=== PATIENT | female | born 1960 | race Caucasian/White ===

== ENCOUNTER → 2016-07-16 | Outpatient (CLI) | payer BC | LOC: BMCIMAGING 09:26 | PROVIDERS: ATTEND Internal Medicine | DX: Z13.820 Encounter for screening for osteoporosis (principal); M85.89 Other specified disorders of bone density and structure, multiple sites; R22.1 Localized swelling, mass and lump, neck | CPT/HCPCS: 76536-PO ==

== ENCOUNTER → 2017-09-22 | Outpatient (CLI) | payer BC | LOC: BMCIMAGING 13:59 | PROVIDERS: ATTEND Physician Assistant | DX: M23.92 Unspecified internal derangement of left knee (principal); M25.462 Effusion, left knee ==